=== PATIENT | female | born 1975 | race Caucasian/White ===

== ENCOUNTER 2018-10-05 13:35 | Outpatient (CLI) | payer OTHER ==
--- NOTE | 2018-10-05 14:22 | RAD ---
RIGHT ANKLE 3 VIEWS: Date: 10/05/18 HISTORY: Right ankle pain and effusion. FINDINGS/IMPRESSION: Comparison made with exam of 01/10/15. Postop changes and metallic hardware seen in the calcaneus. The ankle mortise is maintained. No acute fracture, dislocation, or bony destruction is identified. POS: [facility]
--- NOTE | 2018-10-05 14:49 | RAD ---
RIGHT FOOT THREE VIEWS: HISTORY: Post procedural state. COMPARISON: Foot radiographs from 2015. FINDINGS: No acute fracture or malalignment. Satisfactory appearance of the claw plate and screw hardware of t he calcaneus. The soft tissues are unremarkable. IMPRESSION: Satisfactory postoperative appearance. POS: [facility]
== END 2018-10-05 13:36 | disposition home or self-care (01) ==
LOC: BICRAD 13:35
PROVIDERS: ATTEND Family Medicine
DX: M25.471 Effusion, right ankle (principal); Z98.890 Other specified postprocedural states

== ENCOUNTER 2020-05-31 10:31 | Outpatient (CLI) | payer OTHER ==
--- NOTE | 2020-05-31 10:54 | RAD ---
Lumbar spine 4 views flexion and extension HISTORY: Low back pain. Remote injury. COMPARISON: MRI 10/14/2018. FINDINGS: There are 5 lumbar type vertebrae. Mild leftward convex rotatory scoliotic curvature. Pedic les are intact. Mild compression of the L3 superior endplate, loss of height no greater than 10%. Disc space narrowin g and minimal retrolisthesis at the L3-4 level. Osteophytosis throughout the lower vertebral bodies and facets. No abnormal translational motion upon flexion or extension. Hemostasis clips over the gallbladder fossa. Radiopaque contraceptive device over the uterus. IMPRESSION : Mild L3 superior endplate compression and minimal retrolisthesis at the L3-4 level have developed sin ce the 2019 MRI exam. Degenerative changes lower lumbar facets.
--- NOTE | 2020-05-31 11:21 | MRI ---
MR the lumbar spine without contrast: 05/31/2020 History: Fall from a ladder and 2016, low back pain with sharp pain from the groin to the inner foot COMPARISON: None. TECHNIQUE: Multiplanar multisequence MR images were obtained of lumbar spine without IV contrast FINDINGS: On the basis of 5 lumbar type vertebral bodies, conus medullaris terminates at [id number] level. Sagittal STIR imaging demonstrates edematous degenerative endplate change at the L5-S1 level, particu larly laterally on the right. Mild edematous changes are noted within the soft tissues posterior to the facet joint on the left at L5-S1. There is fluid signal intensity within bilateral L4-5 facet donna nts. T12-L1:Intervertebral disc height and signal intensity within normal limits with no central canal or neural foraminal stenosis L1-2:Intervertebral disc height and signal intensity is within normal limits. No significant central canal or neural foraminal stenosis. Mild anterior osteophyte formation L2-3:There is disc space narrowing with disc desiccation and mild bilateral facet hypertrophy. No sig nificant central canal or neural foraminal stenosis. Mild anterior osteophyte formation L3-4:Bilateral facet hypertrophy. Disc space narrowing and disc desiccation with no significant centr al canal or neural foraminal stenosis L4-5:Significant bilateral facet hypertrophy. There is disc space narrowing and disc desiccation. No significant central canal stenosis. Mild left neural foraminal stenosis L5-S1:There is disc space narrowing and disc desiccation. There is disc bulge with a small superimpos ed central/right paracentral disc protrusion. Mild central canal stenosis/right lateral recess stenosis. Moderate right and severe left neural foraminal stenosis Image retroperitoneal structures demonstrateno acute findings. IMPRESSION: Multilevel lumbar spine degenerative change as detailed above.
== END 2020-05-31 10:32 | disposition home or self-care (01) ==
LOC: TBSIIMAG 10:31
PROVIDERS: ATTEND Surgery
DX: M51.26 Other intervertebral disc displacement, lumbar region (principal); M43.16 Spondylolisthesis, lumbar region; M47.816 Spondylosis without myelopathy or radiculopathy, lumbar region
CPT/HCPCS: 72110; 72148

== ENCOUNTER 2021-01-29 11:56 | Outpatient (CLI) | payer OTHER ==
[2021-01-29 13:03] LABS: Hemoglobin 12.6 g/dL (12.0-15.5); Mean Corpuscular Volume 94.1 fl (81.6-98.3); Mean Platelet Volume 11.4 fl (7.4-10.4); Platelet Count 269 10x3/uL (150-450); RBC Distribution Width 12.7 % (11.5-14.5); Red Blood Cell (RBC) Count 4.06 10x6/uL (3.90-5.03); White Blood Cell (WBC) Count 8.6 10x3/uL (3.5-10.5)
[2021-01-29 13:13] LABS: INR-International Normal Ratio 0.9; PTT 25.4 sec (22.0-33.0)
[2021-01-29 15:45] LABS: BHCG - Serum Negative (NEGATIVE); Pregs Control Background? CLEAR/WHITE (CLR/WHITE); Pregs Control Bar Appear? YES (CONTROL BAR)
[2021-01-29 15:49] LABS: Anion Gap 13 mmol/L (10-20); BUN (Urea Nitrogen) 17 mg/dL (7.0-18.7); Calc. Creatinine Clearance 0 mL/min (70-130); Calcium 10.2 mg/dL (7.8-10.44); Carbon Dioxide 27 mmol/L (22-29); Chloride 103 mmol/L (98-107); Glucose 106 mg/dL (70-105); Potassium 4.3 mmol/L (3.5-5.1); Sodium 139 mmol/L (136-145)
[2021-01-30 16:57] LABS: SARS-CoV-2 PCR by NAA Not Detected (NotDetected)
== END 2021-01-29 11:57 | disposition home or self-care (01) ==
LOC: LABBT 11:56
PROVIDERS: ATTEND Surgery
DX: Z01.818 Encounter for other preprocedural examination (principal); M54.16 Radiculopathy, lumbar region; M48.062 Spinal stenosis, lumbar region with neurogenic claudication; Z20.822 Contact with and (suspected) exposure to COVID-19
CPT/HCPCS: 80048; 84703; 85027; 85610; 85730; 93005; 93010; U0003; U0005

== ENCOUNTER 2021-02-01 06:32 | Observation (INO) | payer OTHER ==
[2021-02-01] MEDS ORDERED: Thrombin 5000 UNITS/5 ML VIAL ONE (06:36)
[2021-02-01] MEDS ORDERED: Fentanyl 250 MCG/5 ML VIAL ONE (07:12)
[2021-02-01] MEDS ORDERED: HYDROmorphone 2 MG/ML VIAL ONE ×2 (07:12→10:09)
[2021-02-01] MEDS ORDERED: SUGAMMADEX SODIUM 200 MG/2 ML VIAL ONE (07:12)
[2021-02-01] MEDS ORDERED: Midazolam HCl 2 mg/2 ml Vial ONE ×2 (07:14→10:09)
[2021-02-01] MEDS ORDERED: Scopolamine 1.5 mg/72 hour Patch ONE (07:15)
[2021-02-01] MEDS ORDERED: Glycopyrrolate 0.2 MG/ML 5 ML SYRINGE ONE (07:35)
[2021-02-01] MEDS ORDERED: PROPOFOL 200 MG/20 ML VIAL ONE (07:35)
[2021-02-01] MEDS ORDERED: Ondansetron PF 4 MG/2 ML Vial ONE (07:35)
[2021-02-01] MEDS ORDERED: Rocuronium Bromide 10 MG/ML (10ML VIAL) ONE (07:35)
[2021-02-01] MEDS ORDERED: Lidocaine 1% PF 5 ML VIAL ONE (07:35)
[2021-02-01] MEDS ORDERED: Dexamethasone 20 MG/5 ML VIAL ONE (07:35)
[2021-02-01] MEDS ORDERED: Morphine 2 MG/ML VIAL SLOW IVP PRN (10:05)
[2021-02-01] MEDS ORDERED: Acetaminophen 325 MG TAB PO PRN (10:05)
[2021-02-01] MEDS ORDERED: Acetaminophen/Codeine 30-300mg Tablet PO PRN (10:05)
[2021-02-01] MEDS ORDERED: traMADol HCl 50 MG TAB PO PRN (10:05)
[2021-02-01] MEDS ORDERED: DULoxetine 60 MG CAP PO PRN (10:07)
[2021-02-01] MEDS ORDERED: Ondansetron HCl/PF 4 MG/2 ML Vial IVP PRN (10:10)
[2021-02-01] MEDS ORDERED: Promethazine HCl 25 MG/ML VIAL IM PRN (10:10)
[2021-02-01] MEDS ORDERED: Meperidine HCl/PF 25 MG/ML VIAL SLOW IVP PRN (10:10)
[2021-02-01] MEDS ORDERED: HYDROmorphone 2 MG/ML VIAL SLOW IVP PRN (10:10)
[2021-02-01] MEDS ORDERED: Promethazine HCl 25 MG/ML VIAL IVPB PRN (10:10)
[2021-02-01] MEDS ORDERED: Midazolam HCl 2 mg/2 ml Vial IVP ONE (10:16)
[2021-02-01] MEDS: CEFAZOLIN 2 GM in Premix Bag 1 BAG IVPB SCH ×2 (13:59→20:53)
[2021-02-01] MEDS: Sodium Chloride 0.9% 1,000 ML IV SCH (13:59)
[2021-02-01] MEDS: HYDROcodone/Acetaminophen 7.5/325 mg Tablet PO PRN ×2 (14:28→20:49)
[2021-02-01] MEDS: tiZANidine HCl 4 MG TAB PO PRN (20:50)
[2021-02-02] MEDS: HYDROcodone/Acetaminophen 7.5/325 mg Tablet PO PRN ×2 (02:02→07:57)
[2021-02-02] MEDS: Sodium Chloride 0.9% 1,000 ML IV SCH (02:30)
[2021-02-02] MEDS: tiZANidine HCl 4 MG TAB PO PRN (06:24)
[2021-02-02 07:32] VITALS: BP 113/70; TEMP 98.2
[2021-02-02] MEDS ORDERED: Lisdexamfetamine Dimesylate [Vyvanse] 70 MG Capsule PO SCH (09:00)
[2021-02-02] MEDS ORDERED: clonazePAM 1 MG TAB PO SCH (09:00)
[2021-02-02 10:34] VITALS: BMI 29.2
== END 2021-02-02 11:30 | disposition home or self-care (01) ==
LOC: SDC 06:32 → SURG B 10:05 → SDC 13:38 → SURG B 13:38
PROVIDERS: ADMIT Surgery; ATTEND Surgery
PROC: 01NB0ZZ Release Lumbar Nerve, Open Approach (ICD-10-PCS; principal; 2021-02-01)
DX: M48.061 Spinal stenosis, lumbar region without neurogenic claudication (principal); M51.16 Intervertebral disc disorders with radiculopathy, lumbar region; F17.200 Nicotine dependence, unspecified, uncomplicated; Z79.899 Other long term (current) drug therapy; Z91.040 Latex allergy status
CPT/HCPCS: 76000; 96374; 96376; G0378; J0690; J1100; J1170; J2250; J2405; J2704; J3010; J3370

== ENCOUNTER 2024-05-31 13:38 | Outpatient (CLI) | payer OTHER | END 2024-05-31 13:39 | disposition home or self-care (01) | LOC: BICMAMMO 13:38 | PROVIDERS: ATTEND Internal Medicine | DX: Z12.31 Encounter for screening mammogram for malignant neoplasm of breast (principal); Z80.3 Family history of malignant neoplasm of breast; Z98.82 Breast implant status | CPT/HCPCS: 77063; 77067 ==

== ENCOUNTER 2025-03-15 13:16 | Outpatient (CLI) | payer OTHER | END 2025-03-15 13:17 | disposition home or self-care (01) | LOC: SCSMRI 13:16 | PROVIDERS: ATTEND Internal Medicine | DX: M54.2 Cervicalgia (principal); R53.1 Weakness; M47.812 Spondylosis without myelopathy or radiculopathy, cervical region | CPT/HCPCS: 72141 ==